=== PATIENT | female | born 1995 | race African-American/Black ===

== ENCOUNTER 2016-10-05 11:28 | Outpatient (CLI) | payer MEDICARE, OTHER ==
[~2016-10-05 11:28] MED LIST: FOLIC ACID1 MG PO; KEFLEX500 MG PO; MACROBID100 MG PO; MOTRIN800 MG PO; NAPROSYN500 MG PO; PERCOCET 5/31 TABLET PO; PRENATAL TABLE1 EACH PO; REGLAN5 MG PO; ZOFRAN ODT4 MG PO; ZYRTEC10 M2 PO
[2016-10-05 11:54] VITALS: BP 107/59
== END 2016-10-05 13:30 | disposition home or self-care (01) ==
LOC: LDRP-OP 11:28 → 2WEST 11:29
DX: R10.2 Pelvic and perineal pain (principal); O99.89 Other specified diseases and conditions complicating pregnancy, childbirth and the puerperium; Z3A.33 33 weeks gestation of pregnancy
CPT/HCPCS: 59025; G0378

== ENCOUNTER 2016-11-05 03:35 | Outpatient (CLI) | payer MEDICARE, OTHER ==
[2016-11-05 04:04] VITALS: BP 113/60
== END 2016-11-05 04:40 | disposition home or self-care (01) ==
LOC: LDRP-OP 03:35 → 2WEST 03:36 → LDRP-OP 12-21 14:44
DX: O47.1 False labor at or after 37 completed weeks of gestation (principal); Z3A.37 37 weeks gestation of pregnancy
CPT/HCPCS: 59025; G0378

== ENCOUNTER 2016-11-16 09:35 | Inpatient (IN) | payer MEDICARE, OTHER ==
[2016-11-16] VITALS (16 sets, daily range): BP systolic 98–127; BP diastolic 55–78
[~2016-11-16] VITALS: Ht 165.1 cm; Wt 75.7 kg
[2016-11-16 11:04] LABS: EOSINOPHIL (%) 0.2 % (0-5); HEMATOCRIT 27.9 % (36.0-46.0); IMMATURE GRANULOCYTE (%) 0.8 % (0.0-0.7); IMMATURE GRANULOCYTE COUNT 0.1 K/uL; INSTRUMENT ABS NEUTROPHIL CT 4.9 K/uL; LYMPHOCYTE COUNT 1.1 K/uL (1.0-2.8); MCH 24.4 PG (29.0-34.0); MCHC 29.4 G/DL (30.0-36.0); MONOCYTE (%) 5.7 % (3-12); MONOCYTE COUNT 0.4 K/uL (0-0.8); NEUTROPHIL (%) 76.1 % (45-76); NEUTROPHIL COUNT 4.9 K/uL (1.8-6.4); PLATELET COUNT 279 K/uL (156-360); RBC DIS.WIDTH-CV 16.4 % (11.8-14.6); RBC DIS.WIDTH-SD 48.7 % (39-53); RED BLOOD COUNT 3.36 M/uL (3.80-5.20); WHITE BLOOD COUNT 6.4 K/uL (4.1-10.2)
[2016-11-17] VITALS (28 sets, daily range): BP systolic 70–129; BP diastolic 41–78
[2016-11-17] MEDS ORDERED: IBUPROFEN800 MG PO (21:57)
[2016-11-17] MEDS ORDERED: FERROUS SULFAT325 MG PO (21:57)
[2016-11-18 00:36] VITALS: BP 112/68
[2016-11-18 07:17] VITALS: BP 111/70
[2016-11-18 10:06] LABS: EOSINOPHIL (%) 0 % (0-5); HEMATOCRIT 29.4 % (36.0-46.0); IMMATURE GRANULOCYTE (%) 0.4 % (0.0-0.7); IMMATURE GRANULOCYTE COUNT 0.1 K/uL; INSTRUMENT ABS NEUTROPHIL CT 11.9 K/uL; LYMPHOCYTE COUNT 1.4 K/uL (1.0-2.8); MCH 24.4 PG (29.0-34.0); MCHC 29.3 G/DL (30.0-36.0); MCV 83.3 FL (83-99); MONOCYTE COUNT 0.7 K/uL (0-0.8); NEUTROPHIL (%) 84.8 % (45-76); NEUTROPHIL COUNT 11.9 K/uL (1.8-6.4); PLATELET COUNT 355 K/uL (156-360); RBC DIS.WIDTH-CV 16.4 % (11.8-14.6); RBC DIS.WIDTH-SD 49.7 % (39-53); RED BLOOD COUNT 3.53 M/uL (3.80-5.20)
[2016-11-18 10:09] LABS: WHITE BLOOD COUNT 14.1 K/uL (4.1-10.2)
[2016-11-18 16:12] VITALS: BP 123/68
[2016-11-18 22:38] VITALS: BP 119/58
== END 2016-11-18 23:38 | disposition home or self-care (01) | DRG 775 ==
LOC: LDRP-OP 09:35 → 2WEST 09:36 → LDRP-OP 12-21 04:52
PROVIDERS: Midwife; Nurse Practitioner
PROC: 3E0P7GC Introduction of Other Therapeutic Substance into Female Reproductive, Via Natural or Artificial Opening (ICD-10-PCS; principal; 2016-11-16)
PROC: 10E0XZZ Delivery of Products of Conception, External Approach (ICD-10-PCS; 2016-11-17)
PROC: 10907ZC Drainage of Amniotic Fluid, Therapeutic from Products of Conception, Via Natural or Artificial Opening (ICD-10-PCS; 2016-11-17)
DX: O76 Abnormality in fetal heart rate and rhythm complicating labor and delivery (principal); O69.81X0 Labor and delivery complicated by cord around neck, without compression, not applicable or unspecified; Z3A.39 39 weeks gestation of pregnancy; Z37.0 Single live birth; F12.90 Cannabis use, unspecified, uncomplicated; O99.324 Drug use complicating childbirth; O99.02 Anemia complicating childbirth; D50.9 Iron deficiency anemia, unspecified
CPT/HCPCS: 85025; G0378; J0595; J2590; J7120

== ENCOUNTER 2017-07-27 08:08 | Emergency (ER) | payer OTHER ==
[~2017-07-27] VITALS: Ht 165.1 cm; Wt 56.4 kg
[~2017-07-27 08:08] MED LIST changes: +FERROUS SULFAT325 MG PO; +IBUPROFEN800 MG PO
[2017-07-27 08:53] LABS: HEMATOCRIT 37.8 % (36.0-46.0); MCH 27.6 PG (29.0-34.0); MCHC 31.2 G/DL (30.0-36.0); MCV 88.5 FL (83-99); MEAN PLAT.VOLUME 10.8 uM^3 (9.5-12.4); PLATELET COUNT 402 K/uL (156-360); RBC DIS.WIDTH-CV 15.4 % (11.8-14.6); RED BLOOD COUNT 4.27 M/uL (3.80-5.20); WHITE BLOOD COUNT 5.5 K/uL (4.1-10.2)
[2017-07-27 09:02] LABS: CHLORIDE 107 mEq/L (99-109); POTASSIUM 3.8 mEq/L (3.7-5.4); SODIUM 144 mEq/L (136-147)
[2017-07-27 09:04] LABS: GLUCOSE 92 mg/dL (70-99)
[2017-07-27 09:05] LABS: ANION GAP 11 MEQ/L (2-14)
[2017-07-27 09:08] LABS: GFR ESTIMATE (CALCULATED) > 59 mL/min/; UREA NITROGEN (BUN) 7 mg/dL (9-23)
[2017-07-27 11:38] LABS: ADD MIUA? YES; BILIRUBIN NEGATIVE; BLOOD NEGATIVE; COLOR YELLOW ((YELLOW)); GLUCOSE (STRIP) NEGATIVE; KETONES NEGATIVE; LEUKOCYTES TRACE; NITRITE NEGATIVE; PROTEIN (STRIP) 30; SPECIFIC GRAVITY 1.026 (1.000-1.030)
[2017-07-27 11:49] LABS: BACTERIA RARE /HPF; EPITHELIAL CELLS 1+ /HPF; MUCUS 4+ /LPF; RED BLOOD CELLS 0-5 /HPF (0-5); WHITE BLOOD CELLS 0-5 /HPF (0-5)
[2017-07-27 12:02] LABS: QUANTITATIVE HCG < 4.0 MIU/ML
[2017-07-27 12:28] VITALS: BP 109/73
== END 2017-07-27 12:28 | disposition home or self-care (01) ==
LOC: EME 08:08
PROVIDERS: Nurse Practitioner Family
DX: R55 Syncope and collapse (principal); E86.0 Dehydration
CPT/HCPCS: 71020; 80048; 81003; 84702; 85027; 93005; 99281; 99284